=== PATIENT | male | born 1955 | race Caucasian/White ===

== ENCOUNTER 2017-05-27 13:20 | Inpatient (IN) | payer SELFPAY ==
[~2017-05-27] VITALS: Ht 177.8 cm; Wt 61.5 kg
[2017-05-27] VITALS (8 sets, daily range): BP systolic 98–142; BP diastolic 63–83; PULSE 74–158; RESP 22–28; TEMP 97.8–99.2; O2SAT 85–97
[2017-05-27 13:43] LABS: MEAN CORPUSCULAR HGB CONC 29.7 % (32.0-36.0)
--- NOTE | 2017-05-27 13:43 | PD ---
HPI Chief Complaint: Respiratory Distress Time Seen by Provider: 13:43 Travel History International Travel<30 days: No Contact w/Intl Traveler<30days: No Traveled to known affect area: No History of Present Illness HPI 61-year-old male presents to the emergency department for evaluation of worsening shortness of breath. Patient's at bedside states he quit smoking cigarettes in December. He has had shortness of breath since then, but this morning was much more worse than normal. She also reports chest congestion and cough. The patient states he has been coughing up blood, worse at night. The patient states this has been ongoing for several months. He denies any blood in his stool. Patient states at bedside does state he looks more pale than normal. He denies any fevers or chills. No abdominal pain. No nausea, vomiting, diarrhea. He denies any chest pain. His at bedside states that he has not seen a physician in over 5 years. He is not currently on any prescribed medications. Patient reports tobacco history of over 40 years. [facility] Past Medical History Ulcer: Yes Social History Alcohol Use: No Tobacco Use: No Substance Use: No Allergies-Medications (Allergen,Severity, Reaction): Coded Allergies: Onion (Verified Allergy, Severe, abdominal pain, diarreas , 05/27/17) Reported Meds & Prescriptions Reported Meds & Active Scripts Active No Active Prescriptions or Reported Medications Review of Systems Except as stated in HPI: all other systems reviewed are Neg Physical Exam Narrative GENERAL: Well-nourished, well-developed male patient. Afebrile. Patient appears pale on exam SKIN: Focused skin assessment warm/dry. HEAD: Normocephalic. Atraumatic EYES: No scleral icterus. No injection or drainage. NECK: Supple, trachea midline. No JVD or lymphadenopathy. CARDIOVASCULAR: Regular rhythm without murmurs, gallops, or rubs. During physical, patient heart rate will go up to 140s to 150 and then back down to 80- 90's. RESPIRATORY: Breath sounds diminished to right lung. Accessory muscle use noted. GASTROINTESTINAL: Abdomen soft, non-tender, nondistended. MUSCULOSKELETAL: No cyanosis, or edema. BACK: Nontender without obvious deformity. No CVA tenderness. Data Data Last Documented VS Vital Signs Date Time Temp Pulse Resp B/P Pulse Ox O2 Delivery O2 Flow Rate FiO2 05/27/17 16:21 98.9 74 22 98/63 96 Nasal Cannula 3 Orders Complete Blood Count With Diff (05/27/17 13:41) Comprehensive Metabolic Panel (05/27/17 13:41) B-Type Natriuretic Peptide (05/27/17 13:41) Act Partial Throm Time (Ptt) (05/27/17 13:41) Prothrombin Time / Inr (Pt) (05/27/17 13:41) Magnesium (Mg) (05/27/17 13:41) Ckmb (Isoenzyme) Profile (05/27/17 13:41) Troponin I (05/27/17 13:41) Blood Culture (05/27/17 13:41) Iv Access Insert/Monitor (05/27/17 13:41) Electrocardiogram (05/27/17 13:41) Ecg Monitoring (05/27/17 13:41) Oximetry (05/27/17 13:41) Oxygen Administration (05/27/17 13:41) Chest, Single Ap (05/27/17 13:41) Sodium Chloride 0.9% Flush (Ns Flush) (05/27/17 13:45) Albuterol-Ipratropium Neb (Duoneb Neb) (05/27/17 13:45) Type And Screen (05/27/17 13:41) Lactic Acid Sepsis Protocol (05/27/17 13:41) Diltiazem Inj (Cardizem Inj) (05/27/17 14:00) Ct Pulmonary Angiogram (05/27/17 ) Sodium Chlor 0.9% 1000 Ml Inj (Ns 1000 M (05/27/17 14:30) Vancomycin Inj (Vancomycin Inj) (05/27/17 14:30) Piperacil-Tazo 4.5 Gm Premix (Zosyn 4.5 (05/27/17 14:30) CKMB (05/27/17 13:45) CKMB% (05/27/17 13:45) Sodium Chlor 0.9% 1000 Ml Inj (Ns 1000 M (05/27/17 15:15) Aspirin Chew (Aspirin Chew) (05/27/17 15:15) Code Status (05/27/17 15:12) Lactic Acid (05/27/17 16:04) Iohexol 350 Inj (Omnipaque 350 Inj) (05/27/17 16:06) Troponin I (05/27/17 16:55) Admit Order (Ed Use Only) (05/27/17 17:01) Labs Laboratory Tests Test 05/27/17 05/27/17 13:45 16:10 White Blood Count 38.3 TH/MM3 Red Blood Count 4.38 MIL/MM3 Hemoglobin 10.1 GM/DL Hematocrit 33.8 % Mean Corpuscular Volume 77.2 FL Mean Corpuscular Hemoglobin 23.0 PG Mean Corpuscular Hemoglobin 29.7 % Concent Red Cell Distribution Width 18.9 % Platelet Count 544 TH/MM3 Mean Platelet Volume 6.6 FL Neutrophils (%) (Auto) 94.4 % Lymphocytes (%) (Auto) 1.8 % Monocytes (%) (Auto) 3.7 % Eosinophils (%) (Auto) 0.0 % Basophils (%) (Auto) 0.1 % Neutrophils # (Auto) 36.1 TH/MM3 Lymphocytes # (Auto) 0.7 TH/MM3 Monocytes # (Auto) 1.4 TH/MM3 Eosinophils # (Auto) 0.0 TH/MM3 Basophils # (Auto) 0.0 TH/MM3 CBC Comment AUTO DIFF Differential Total Cells 100 Counted Neutrophils % (Manual) 66 % Band Neutrophils % 31 % Monocytes % 3 % Neutrophils # (Manual) 37.2 TH/MM3 Differential Comment FINAL DIFF MANUAL Toxic Granulation 1+ Toxic Vacuolation PRESENT Dohle Bodies PRESENT Platelet Estimate HIGH Platelet Morphology Comment NORMAL Prothrombin Time 13.7 SEC Prothromb Time International 1.2 RATIO Ratio Activated Partial 30.4 SEC Thromboplast Time Sodium Level 131 MEQ/L Potassium Level 3.7 MEQ/L Chloride Level 90 MEQ/L Carbon Dioxide Level 28.3 MEQ/L Anion Gap 13 MEQ/L Blood Urea Nitrogen 14 MG/DL Creatinine 1.19 MG/DL Estimat Glomerular Filtration 62 ML/MIN Rate Random Glucose 159 MG/DL Lactic Acid Level 7.2 mmol/L 6.7 mmol/L Calcium Level 9.4 MG/DL Magnesium Level 2.2 MG/DL Total Bilirubin 0.6 MG/DL Aspartate Amino Transf 61 U/L (AST/SGOT) Alanine Aminotransferase 43 U/L (ALT/SGPT) Alkaline Phosphatase 239 U/L Total Creatine Kinase 141 U/L Creatine Kinase MB 13.6 NG/ML Troponin I 4.75 NG/ML B-Type Natriuretic Peptide 344 PG/ML Total Protein 7.7 GM/DL Albumin 2.1 GM/DL Blood Type O POSITIVE Antibody Screen NEGATIVE Blood Bank Comment MDM Medical Decision Making Medical Screen Exam Complete: Yes Emergency Medical Condition: Yes Medical Record Reviewed: Yes Interpretation(s) Last Impressions Chest X-Ray 05/27/17 1341 Signed Impressions: Service Date/Time: Monday, May 27, 2017 13:52 - CONCLUSION: 1. Almost complete opacification right hemithorax. Central obstructing mass cannot be excluded. Contrasted CT chest. 2. Suspect a large right pleural effusion as well. Sean Augustine MD CT PA - CONCLUSION: 1. No evidence for pulmonary embolus. 2. Diffuse abnormal appearance of the right hemithorax with no normal lung tissue seen. There are air bronchograms in the right upper lung with large cavitary process in the right midlung and upper lung. Multiple areas of low attenuation throughout the right lower hemithorax. This may represent a combination of mass and empyema/lung abscess. Does patient have a surgical history on the right? There is severe tapering of the right main pulmonary artery. 3. Prominent adenopathy in the right paratracheal and superior mediastinum as well as supradiaphragmatic region. 4. Bronchoscopy recommended. Differential Diagnosis Pneumonia versus anemia versus GI bleed versus ACS versus A. fib with RVR versus PE versus sepsis Narrative Course 61-year-old male presents to the emergency department for worsening shortness of breath that started this morning. EKG shows atrial fibrillation, heart rate 139. Immediately after EKG, heart rate came back down to the 80s. CBC, CMP, BNP, PTT, PTT/INR, magnesium, CK, troponin, lactic acid, blood cultures 2, type and screen are ordered and pending. Chest x-ray is ordered and pending. Patient is given DuoNeb 2. Patient is sustaining in atrial fibrillation more frequently. Patient is given Cardizem bolus 0.25 mg/kg. CBC shows leukocytosis of 38.3, hemoglobin 10.1, hematocrit 33.8, neutrophilia 94.4. CMP shows hyponatremia 131, glucose 159, alkaline phosphatase 239. BNP is 344. Magnesium is 2.2. CK is 141. Troponin is 4.75. Lactic acid is 7.2. PT is 13.7, and INR 1.2, PTT 30.4. Chest x-ray shows almost complete opacification right hemithorax; Central obstructing mass cannot be excluded. Contrasted CT chest; Suspect a large right pleural effusion as well. CT pulmonary angiogram is ordered and shows no evidence for pulmonary embolus; diffuse abnormal appearance of the right hemithorax with no normal lung tissue seen. There are air bronchograms in the right upper lung with large cavitary process in the right midlung and upper lung. Multiple areas of low attenuation throughout the right lower hemithorax. This may represent a combination of mass and empyema/lung abscess. Does patient have a surgical history on the right? There is severe tapering of the right main pulmonary artery; prominent adenopathy in the right paratracheal and superior mediastinum as well as supradiaphragmatic region; bronchoscopy recommended. Patient is started on vancomycin 1 gm IV and Zosyn 4.5 gm IV. Normal saline 1 L IV bolus x2 is given. Dr. Pierre, veneer sawyer, accepted admission. Patient is placed on bipap. He is diaphoretic and using accessory muscles. Patient will be placed on bipap and ABG will be obtained. Dr. Pierre would like patient on TB precautions. Patient will be moved to a negative pressure room. Sepsis Criteria SIRS Criteria (2 or more): Heart rate over 90, WBC > 07570, < 4000 or > 10% bands Sepsis Criteria (SIRS+source): Infect source susp/known Severe Sepsis (+one): Lactate >2 Septic Shock Criteria: Lactic acid >=4 Diagnosis Primary Impression: Acute respiratory failure Qualified Code: J96.00 - Acute respiratory failure, unspecified whether with hypoxia or hypercapnia Additional Impressions: Probable lung abscess Septic shock Severe leukocytosis Lactic acidemia NSTEMI (non-ST elevated myocardial infarction) Cavitating right sided lung lesion Admitting Information Admitting Physician Requests: Admit Scripts No Active Prescriptions or Reported Meds Jenae Lr May 27, 2017 13:43
[2017-05-27] MEDS: RESP: ALBUTEROL 2.5 MG/IPRATROPIUM 0.5 MG NEB (SCH) INH (13:46)
[2017-05-27] MEDS ORDERED: DILTIAZEM HCL 25 MG/5 ML VIAL IV PUSH ONE (14:00)
[2017-05-27] MEDS: SODIUM CHLORIDE 0.9% FLUSH 10 ML FLUSH IVF PRN ×2 (14:06→17:44)
[2017-05-27 14:08] LABS: AUTOMATED NEUTROPHIL # 36.1 TH/MM3 (1.8-7.7); BASOPHIL % 0.1 % (0.0-2.0); HEMATOCRIT 33.8 % (39.0-51.0); LYMPH % 1.8 % (9.0-44.0); LYMPHOCYTE # 0.7 TH/MM3 (1.0-4.8); MEAN CELL VOLUME 77.2 FL (80.0-100.0); MONO % 3.7 % (0.0-8.0); NEUT % 94.4 % (16.0-70.0); PLATELET COUNT 544 TH/MM3 (150-450); RED BLOOD COUNT 4.38 MIL/MM3 (4.50-5.90); RED CELL DISTRIBUTION WIDTH 18.9 % (11.6-17.2); WHITE BLOOD COUNT 38.3 TH/MM3 (4.0-11.0)
[2017-05-27 14:09] LABS: HEMO FLAGS AUTO DIFF
[2017-05-27 14:16] LABS: APTT (PATIENT) 30.4 SEC (24.3-30.1); INTERNATIONAL NORMALIZED RATIO 1.2 RATIO; PROTHROMBIN TIME - PATIENT 13.7 SEC (9.8-11.6)
--- NOTE | 2017-05-27 14:24 | PD ---
Physical Exam Date Seen by Provider: May 27, 2017 Time Seen by Provider: 14:00 Narrative This patient is being seen along with Jenae Lr for cough and shortness of breath. Data Data Last Documented VS Vital Signs Date Time Temp Pulse Resp B/P Pulse Ox O2 Delivery O2 Flow Rate FiO2 05/27/17 16:21 98.9 74 22 98/63 96 Nasal Cannula 3 Orders Complete Blood Count With Diff (05/27/17 13:41) Comprehensive Metabolic Panel (05/27/17 13:41) B-Type Natriuretic Peptide (05/27/17 13:41) Act Partial Throm Time (Ptt) (05/27/17 13:41) Prothrombin Time / Inr (Pt) (05/27/17 13:41) Magnesium (Mg) (05/27/17 13:41) Ckmb (Isoenzyme) Profile (05/27/17 13:41) Troponin I (05/27/17 13:41) Blood Culture (05/27/17 13:41) Iv Access Insert/Monitor (05/27/17 13:41) Electrocardiogram (05/27/17 13:41) Ecg Monitoring (05/27/17 13:41) Oximetry (05/27/17 13:41) Oxygen Administration (05/27/17 13:41) Chest, Single Ap (05/27/17 13:41) Sodium Chloride 0.9% Flush (Ns Flush) (05/27/17 13:45) Albuterol-Ipratropium Neb (Duoneb Neb) (05/27/17 13:45) Type And Screen (05/27/17 13:41) Lactic Acid Sepsis Protocol (05/27/17 13:41) Diltiazem Inj (Cardizem Inj) (05/27/17 14:00) Ct Pulmonary Angiogram (05/27/17 ) Sodium Chlor 0.9% 1000 Ml Inj (Ns 1000 M (05/27/17 14:30) Vancomycin Inj (Vancomycin Inj) (05/27/17 14:30) Piperacil-Tazo 4.5 Gm Premix (Zosyn 4.5 (05/27/17 14:30) CKMB (05/27/17 13:45) CKMB% (05/27/17 13:45) Sodium Chlor 0.9% 1000 Ml Inj (Ns 1000 M (05/27/17 15:15) Aspirin Chew (Aspirin Chew) (05/27/17 15:15) Code Status (05/27/17 15:12) Lactic Acid (05/27/17 16:04) Iohexol 350 Inj (Omnipaque 350 Inj) (05/27/17 16:06) Troponin I (05/27/17 16:55) Admit Order (Ed Use Only) (05/27/17 17:01) Labs Laboratory Tests Test 05/27/17 05/27/17 13:45 16:10 White Blood Count 38.3 TH/MM3 Red Blood Count 4.38 MIL/MM3 Hemoglobin 10.1 GM/DL Hematocrit 33.8 % Mean Corpuscular Volume 77.2 FL Mean Corpuscular Hemoglobin 23.0 PG Mean Corpuscular Hemoglobin 29.7 % Concent Red Cell Distribution Width 18.9 % Platelet Count 544 TH/MM3 Mean Platelet Volume 6.6 FL Neutrophils (%) (Auto) 94.4 % Lymphocytes (%) (Auto) 1.8 % Monocytes (%) (Auto) 3.7 % Eosinophils (%) (Auto) 0.0 % Basophils (%) (Auto) 0.1 % Neutrophils # (Auto) 36.1 TH/MM3 Lymphocytes # (Auto) 0.7 TH/MM3 Monocytes # (Auto) 1.4 TH/MM3 Eosinophils # (Auto) 0.0 TH/MM3 Basophils # (Auto) 0.0 TH/MM3 CBC Comment AUTO DIFF Differential Total Cells 100 Counted Neutrophils % (Manual) 66 % Band Neutrophils % 31 % Monocytes % 3 % Neutrophils # (Manual) 37.2 TH/MM3 Differential Comment FINAL DIFF MANUAL Toxic Granulation 1+ Toxic Vacuolation PRESENT Dohle Bodies PRESENT Platelet Estimate HIGH Platelet Morphology Comment NORMAL Prothrombin Time 13.7 SEC Prothromb Time International 1.2 RATIO Ratio Activated Partial 30.4 SEC Thromboplast Time Sodium Level 131 MEQ/L Potassium Level 3.7 MEQ/L Chloride Level 90 MEQ/L Carbon Dioxide Level 28.3 MEQ/L Anion Gap 13 MEQ/L Blood Urea Nitrogen 14 MG/DL Creatinine 1.19 MG/DL Estimat Glomerular Filtration 62 ML/MIN Rate Random Glucose 159 MG/DL Lactic Acid Level 7.2 mmol/L 6.7 mmol/L Calcium Level 9.4 MG/DL Magnesium Level 2.2 MG/DL Total Bilirubin 0.6 MG/DL Aspartate Amino Transf 61 U/L (AST/SGOT) Alanine Aminotransferase 43 U/L (ALT/SGPT) Alkaline Phosphatase 239 U/L Total Creatine Kinase 141 U/L Creatine Kinase MB 13.6 NG/ML Troponin I 4.75 NG/ML B-Type Natriuretic Peptide 344 PG/ML Total Protein 7.7 GM/DL Albumin 2.1 GM/DL Blood Type O POSITIVE Antibody Screen NEGATIVE Blood Bank Comment MDM Supervised Visit with JATINDER: Yes Narrative Course I, Dr. Moreno, have reviewed the advance practice practitioner's documentation and am in agreement, met with the patient face to face, made the diagnosis, and the medical decision making was done by me. *My assessment and Findings: Patient is pale and diaphoretic. He alternates between a sinus rhythm and atrial fibrillation with a rapid ventricular response. His lung sounds on the right are markedly diminished. The patient's told me that the patient requested a DNR status in route to the hospital today. I have explained to the patient and to the that there are several different levels of DNR including DO NOT INTUBATE, do not perform compressions, do not shock and do not do anything. They are currently thinking about which status he would prefer. The patient and the state that he would not want anything done if he suffered cardiac arrest. He wants to be a DNR. Critical Care Narrative Aggregate critical care time was 45 minutes. Time to perform other separately billable procedures was not included in the critical care time. My time did not include minutes spent treating any other patients simultaneously or on activities that did not directly contribute to the patient's treatment. The services I provided to this patient were to treat and/or prevent clinically significant deterioration due to tachycardia, diaphoresis, respiratory distress I provided critical care services requiring my management, as noted below: Chart data review, documentation time, medication orders and management, vital sign assessments/reviewing monitor data, ordering and reviewing lab tests, ordering and interpreting/reviewing x-rays and diagnostic studies, care of the patient and discussion of the patient with the admitting physicians Scripts No Active Prescriptions or Reported Meds Parris Moreno MD May 27, 2017 14:24
[2017-05-27] MEDS ORDERED: VANCOMYCIN INJ 1,000 MG in SODIUM CHLOR 0.9% 250 ML INJ 250 ML IV ONE (14:30)
[2017-05-27] MEDS ORDERED: SODIUM CHLOR 0.9% 1000 ML INJ 1,000 ML IV ONE ×2 (14:30→15:15)
[2017-05-27] MEDS ORDERED: PIPERACIL-TAZO 4.5 GM PREMIX 100 ML IV ONE (14:30)
[2017-05-27 14:34] LABS: BANDS 31 % (0-6); NEUTROPHIL # MANUAL DIFF 37.2 TH/MM3 (1.8-7.7); PLATELET ESTIMATE SMEAR HIGH (NORMAL); PLATELET MORPHOLOGY NORMAL (NORMAL); POLYS (SEG NEUTROPHILS) 66 % (16-70); SCAN/DIFF FINAL DIFF MANUAL; WBC DIFF SAMPLE 100
[2017-05-27 14:35] LABS: DOHLE BODIES PRESENT (NONE SEEN); TOXIC GRANULATION 1+ (NORMAL); TOXIC VACUOLATION PRESENT (NONE SEEN)
[2017-05-27 14:36] LABS: ALT (GPT) 43 U/L (12-78); ANION GAP 13 MEQ/L (5-15); AST (GOT) 61 U/L (15-37); BICARBONATE 28.3 MEQ/L (21.0-32.0); BLOOD UREA NITROGEN 14 MG/DL (7-18); CHLORIDE 90 MEQ/L (98-107); GLOMERULAR FILTRATION RATE 62 ML/MIN (>89); MAGNESIUM 2.2 MG/DL (1.5-2.5); POTASSIUM 3.7 MEQ/L (3.5-5.1); SODIUM (NA) 131 MEQ/L (136-145)
--- NOTE | 2017-05-27 14:37 | RADRPT ---
EXAM DATE/TIME: 05/27/2017 13:52 [facility] COMPARISON: No previous studies available for comparison. INDICATIONS : Short of Breath MEDICAL HISTORY : None. SURGICAL HISTORY : None. ENCOUNTER: Initial ACUITY: 1 day PAIN SCORE: 0/10 LOCATION: Bilateral chest FINDINGS: A single view of the chest demonstrates large right pleural effusion. Almost complete opacification r ight hemithorax. Only small portion of the right upper lobe aerated. Central obstructing mass cannot be excluded. Left lung clear. Osseous structures are intact. CONCLUSION: 1. Almost complete opacification right hemithorax. Central obstructing mass cannot be excluded. Contr asted CT chest. 2. Suspect a large right pleural effusion as well. Sean Augustine MD on May 27, 2017 at 14:35 Board Certified Radiologist. This report was verified electronically.
[2017-05-27 14:39] LABS: ALKALINE PHOSPHATASE 239 U/L (45-117); CREATINE KINASE 141 U/L (39-308); TOTAL BILIRUBIN ADULT 0.6 MG/DL (0.2-1.0)
[2017-05-27 15:14] LABS: CKMB 13.6 NG/ML (0.5-3.6)
[2017-05-27] MEDS ORDERED: ASPIRIN 81 MG CHEW TAB CHEW ONE (15:15)
[2017-05-27 16:05] LABS: LACTIC ACID GHOST NOT REPORTABLE
[2017-05-27] MEDS ORDERED: IOHEXOL 350 MG/ML 10 ML VIAL (for RAD DIAG) IV ONE (16:06)
--- NOTE | 2017-05-27 16:20 | RADRPT ---
EXAM DATE/TIME: 05/27/2017 15:46 [facility] COMPARISON: No previous studies available for comparison. INDICATIONS : Worsening shortness of breath for one week. IV CONTRAST: 69 cc Omnipaque 350 (iohexol) IV RADIATION DOSE: 23.42 CTDIvol (mGy) MEDICAL HISTORY : None SURGICAL HISTORY : None. ENCOUNTER: Initial ACUITY: 1 day PAIN SCALE: 0/10 LOCATION: Bilateral chest TECHNIQUE: Volumetric scanning of the chest was performed using a pulmonary embolism protocol MIP images were re constructed. Using automated exposure control and adjustment of the mA and/or kV according to patien t size, radiation dose was kept as low as reasonably achievable to obtain optimal diagnostic quality images. DICOM format image data is available electronically for review and comparison. FINDINGS: PULMONARY ARTERIES: No filling defects are seen in the pulmonary arteries through the segmental level. LUNGS: Diffuse abnormal appearance of the right lung with multiple air bronchograms and cavities occupying t he right upper lung. Multiple areas of low-density are seen throughout the right lower lung. This may represent a combination of mass and lung abscess/empyema. No normal appearing lung tissue present. T here is narrowing of the right pulmonary artery. PLEURAE: There is no pleural thickening or pleural effusion. MEDIASTINUM: There is good visualization of the great vessels of the middle mediastinum. There are some prominent right paratracheal lymph nodes and super diaphragmatic lymph nodes. MUSCULOSKELETAL: Within normal limits for patient age. MISCELLANEOUS: The visualized upper abdominal organs demonstrate prominent super diaphragmatic lymph node measuring 1.4 x 1.8 cm.. CONCLUSION: 1. No evidence for pulmonary embolus. 2. Diffuse abnormal appearance of the right hemithorax with no normal lung tissue seen. There are air bronchograms in the right upper lung with large cavitary process in the right midlung and upper lung . Multiple areas of low attenuation throughout the right lower hemithorax. This may represent a combi [place] of mass and empyema/lung abscess. Does patient have a surgical history on the right? There is severe tapering of the right main pulmonary artery. 3. Prominent adenopathy in the right paratracheal and superior mediastinum as well as supradiaphragma tic region. 4. Bronchoscopy recommended. Sean Augustine MD on May 27, 2017 at 16:09 Board Certified Radiologist. This report was verified electronically.
--- NOTE | 2017-05-27 17:11 | HHI.HP ---
HPI Service Critical Care Medicine Primary Care Physician No Primary Care Physician Admission Diagnosis pnemonia, sepsis, elevated troponin, A-fib with RVR Diagnosis: (1) Acute hypoxemic respiratory failure Diagnosis: Principal (2) Septic shock Diagnosis: Principal (3) NSTEMI (non-ST elevated myocardial infarction) Diagnosis: Principal (4) Probable lung abscess Diagnosis: Principal (5) Cavitating right sided lung lesion Diagnosis: Principal (6) Severe leukocytosis Diagnosis: Principal (7) Lactic acidemia Diagnosis: Principal (8) Atrial fibrillation with RVR Diagnosis: Principal (9) History of gastric ulcer Diagnosis: Secondary Chief Complaint: Severe shortness of breath [employer] Travel History International Travel<30 Days: No Contact w/Intl Traveler <30 Da: No Traveled to Known Affected Are: No Sepsis Criteria SIRS Criteria (2 or more): Heart rate over 90, RR > 20 or PaCO2 < 32, WBC > 81240, < 4000 or > 10% bands Severe Sepsis (+one): Lactate >2 Septic Shock Criteria: Lactic acid >=4 Criteria Outcome: Meets septic shock criteria History of Present Illness Patient is a 61-year-old male with past medical history significant for [id number] history of smoking, previous history of alcohol dependence, weight loss of approximately 100 pound since December of this year, hemoptysis who presented to the emergency department with progressive shortness of breath. He arrived quite tachypneic and diaphoretic to the ED. Patient was placed on nasal cannula oxygen, a chest x-ray showed complete whiteout of the right lung field. Patient was sent for emergent CT pulmonary angiogram which showed no pulmonary embolism but extensive and complete consolidation of the right lung with air bronchograms in the right upper lung with large cavitary process. Right lower lung field had cavitated lesions indicating probable cavitated lung cancer versus empyema/lung abscess, also severe tapering of the right main pulmonary artery, and prominent adenopathy in the right paratracheal and superior mediastinum as well as supradiaphragmatic region. He should also was initially in atrial fibrillation with RVR, for which he received Cardizem bolus and converted to sinus rhythm. Multiple abnormal lab data CBC shows leukocytosis of 38.3 with 31% bands, hemoglobin 10.1. CMP shows hyponatremia 131. His Troponin is was 4.75. Lactic acid was highly elevated at 7.2. Patient was vancomycin 1 gm IV and Zosyn 4.5 gm IV. Normal saline 1 L IV bolus x2 is given. Patient requested to be a DNR I evaluated the patient in the emergency department. His respiratory status has deteriorated his more hypoxic and very tachypneic and had been placed on BiPAP. I discussed with him extensively about the CODE STATUS and the reason for choosing DNR. He is very adamant that he does not run ventilatory support or cardiac resuscitation. His sister agrees that they have decided this prior to hospitalization. Patient appears to be worried that he has lung cancer with a weight loss and hemoptysis. Apparently his father of gastric cancer, one sister had breast cancer and another sister had colon cancer. Again patient is extremely tachypneic in impending respiratory failure but refuses ventilator and now refusing BiPAP. I have placed him for Ativan and morphine for anxiety. I have placed him on scheduled and when necessary breathing treatments. Will continue vancomycin and Zosyn and add Levaquin. Also started him on Solu-Medrol 125 mg 1 and 60 every 6 Review of Systems ROS Limitations: Clinical Condition (limited ROS due to severe respiratory distress) Past Family Social History Allergies: Coded Allergies: Onion (Verified Allergy, Severe, abdominal pain, diarreas , 05/27/17) Past Medical History Past history significant for only gastric ulcer Past Surgical History No surgeries Reported Medications Does not take any medication Active Ordered Medications Reviewed Family History Apparently his father of gastric cancer, one sister had breast cancer and another sister had colon cancer Social History [id number] history of smoking until he quit in December of this year History of alcohol dependence and quit 5 years ago Physical Exam Vital Signs Vital Signs Date Time Temp Pulse Resp B/P Pulse Ox O2 Delivery O2 Flow Rate FiO2 05/27/17 16:21 98.9 74 22 98/63 96 Nasal Cannula 3 05/27/17 14:32 99.2 91 24 142/78 96 Nasal Cannula 3 05/27/17 13:45 99 Nasal Cannula 3 05/27/17 13:42 24 97 Nasal Cannula 3 05/27/17 13:33 158 24 98/67 97 Physical Exam GENERAL: Extremely tachypneic critically ill patient who is the diaphoretic SKIN: Dry pale and diaphoretic HEAD: Normocephalic. Atraumatic EYES: No scleral icterus. No injection or drainage. NECK: Supple, trachea midline. No JVD or lymphadenopathy. CARDIOVASCULAR: Tachycardic rhythm without murmurs, gallops, or rubs. Intermittently in atrial fibrillation RESPIRATORY: Breath sounds diminished to right lung, coarse and fine scattered crackles. Accessory muscle use noted. Very tachypneic GASTROINTESTINAL: Abdomen soft, non-tender, nondistended. MUSCULOSKELETAL: No cyanosis, or edema. BACK: Nontender without obvious deformity. No CVA tenderness. NEURO: Alert oriented 3. Severe distress but follows commands Laboratory Laboratory Tests Test 05/27/17 05/27/17 13:45 16:10 White Blood Count 38.3 Red Blood Count 4.38 Hemoglobin 10.1 Hematocrit 33.8 Mean Corpuscular Volume 77.2 Mean Corpuscular Hemoglobin 23.0 Mean Corpuscular Hemoglobin 29.7 Concent Red Cell Distribution Width 18.9 Platelet Count 544 Mean Platelet Volume 6.6 Neutrophils (%) (Auto) 94.4 Lymphocytes (%) (Auto) 1.8 Monocytes (%) (Auto) 3.7 Eosinophils (%) (Auto) 0.0 Basophils (%) (Auto) 0.1 Neutrophils # (Auto) 36.1 Lymphocytes # (Auto) 0.7 Monocytes # (Auto) 1.4 Eosinophils # (Auto) 0.0 Basophils # (Auto) 0.0 CBC Comment AUTO DIFF Differential Total Cells 100 Counted Neutrophils % (Manual) 66 Band Neutrophils % 31 Monocytes % 3 Neutrophils # (Manual) 37.2 Differential Comment FINAL DIFF MANUAL Toxic Granulation 1+ Toxic Vacuolation PRESENT Dohle Bodies PRESENT Platelet Estimate HIGH Platelet Morphology Comment NORMAL Prothrombin Time 13.7 Prothromb Time International 1.2 Ratio Activated Partial 30.4 Thromboplast Time Sodium Level 131 Potassium Level 3.7 Chloride Level 90 Carbon Dioxide Level 28.3 Anion Gap 13 Blood Urea Nitrogen 14 Creatinine 1.19 Estimat Glomerular Filtration 62 Rate Random Glucose 159 Lactic Acid Level 7.2 6.7 Calcium Level 9.4 Magnesium Level 2.2 Total Bilirubin 0.6 Aspartate Amino Transf 61 (AST/SGOT) Alanine Aminotransferase 43 (ALT/SGPT) Alkaline Phosphatase 239 Total Creatine Kinase 141 Creatine Kinase MB 13.6 Troponin I 4.75 B-Type Natriuretic Peptide 344 Total Protein 7.7 Albumin 2.1 Blood Type O POSITIVE Antibody Screen NEGATIVE Blood Bank Comment Date/Time Procedure Status Source Growth 05/27/17 13:50 Aerobic Blood Culture Received Blood Peripheral Pending 05/27/17 13:50 Anaerobic Blood Culture Received Blood Peripheral Pending Result Diagram: 05/27/17 1345 05/27/17 1345 Imaging Chest x-ray and CT scan personally reviewed Septic Shock Reassessment Heart: Irregular Lungs: Course Skin: Cold Peripheral Pulses: Weak Right Radial Weak Left Radial Capillary Refill: Sluggish, <2 seconds Assessment and Plan Assessment and Plan NEURO: - Use Ativan and fentanyl when necessary for anxiety and pain - If clinically not improving may need transition to comfort measures RESP: Acute hypoxemic respiratory failure Extensive consolidation/mass involving right lung with cavitation (D/D cavitated treated lung cancer vs Lung abscess vs tuberculosis) COPD exacerbation - Initiate TB isolation. Patient refuses endotracheal intubation - DuoNeb every 6 hours scheduled and when necessary - IV Solu Medrol 125 mg 1 and 60 every 6 hours - Vancomycin and Zosyn will be continued, add Levaquin - Sputum culture, AFB stain and culture - Pulmonology and infectious diseases consult - CT findings along with history of hemoptysis and approximately 100 pound weight loss very concerning for lung cancer CV: NSTEMI Atrial fibrillation with RVR Lactic acidosis - Normal saline IV fluids 2L and NS at 84 ml per hour - Hold of cardiology consult and 2-D echo due to poor prognosis, repeat troponin - Patient refused aspirin. With a history of gastric ulcer I will not heparinize - Cardizem infusion for atrial fibrillation with RVR GI: - Nothing by mouth, IV Protonix : - Monitor renal function closely. Place Singh catheter if patient agreeable ID: Septic shock Probable cavitating pneumonia/lung abscess - IV vancomycin, Zosyn and Levaquin - Check sputum culture blood culture and sputum for AFB HEME: - Monitor CBC, CMP, coags - High likelihood of cavitating lung cancer. - Pursue bronchoscopy if he stabilizes clinically ENDO: - Electrolyte replacement per protocol PROPH: - Bilateral lower extremity SCDs. Lovenox/Protonix LINES: - Utilize peripheral IVs, central line if needed CC time 55 min Patient is in respiratory extremis, but refuses BiPAP or endotracheal intubation. He is aware that he may of present illness Code Status Full Discussed Condition With Patient and sister Ruben Pierre MD May 27, 2017 17:11
[2017-05-27] MEDS ORDERED: Vancomycin Consult Pharmacy 1 EA OTHER SCH (17:15)
[2017-05-27] MEDS ORDERED: MISCELLANEOUS NURSING INFORMATION XX SCH (17:15)
[2017-05-27] MEDS ORDERED: RESP: ALBUTEROL 2.5 MG/IPRATROPIUM 0.5 MG NEB (PRN) INH (17:15)
[2017-05-27] MEDS ORDERED: CHLORHEXIDINE GLUCONATE 2 % 1 PACK (2 CLOTHS) TOP PRN (17:15)
[2017-05-27] MEDS ORDERED: SODIUM CHLORIDE 0.9% FLUSH 10 ML FLUSH IV FLUSH PRN (17:15)
[2017-05-27] MEDS ORDERED: PANTOPRAZOLE SODIUM 40 MG VIAL IV SCH (17:15)
--- NOTE | 2017-05-27 17:30 | EKG ---
Date Performed: 05/27/2017 Time Performed: 13:42:21 PTAGE: 61 years EKG: ATRIAL FIBRILLATION WITH RAPID VENTRICULAR RESPONSE MARKED LEFT AXIS DEVIATION POSSIBLE ANT ERIOR MYOCARDIAL INFARCTION BASELINE ARTIFACT ABNORMAL ECG NO PREVIOUS TRACING DOCTOR: Jose Antonio Sethi Interpretating Date/Time 05/29/2017 07:52:50
[2017-05-27] MEDS ORDERED: LORazepam 2 MG/ML VIAL IV PUSH PRN (17:45)
[2017-05-27] MEDS ORDERED: LEVOFLOXACIN 750 MG PREMIX INJ 150 ML IV SCH (18:00)
[2017-05-27] MEDS ORDERED: PIPERACIL-TAZO 4.5 GM PREMIX 100 ML IV SCH ×2 (18:00→20:00)
[2017-05-27] MEDS ORDERED: ENOXAPARIN SODIUM 40 MG/0.4 ML SYRINGE SQ SCH (18:00)
[2017-05-27] MEDS ORDERED: methylPREDNISolone SOD SUCC 125 MG/2 ML VIAL IV PUSH SCH (18:00)
[2017-05-27] MEDS ORDERED: methylPREDNISolone SOD SUCC 125 MG/2 ML VIAL IV PUSH ONE (18:00)
[2017-05-27] MEDS ORDERED: DILTIAZEM INJ 125 MG in SODIUM CHLORIDE 0.9% INJ 100 ML IV SCH (18:00)
[2017-05-27] MEDS: SODIUM CHLOR 0.9% 1000 ML INJ 1,000 ML IV SCH (18:36)
[2017-05-27] MEDS ORDERED: VANCOMYCIN 1,000 MG/NS 250 ML IV ONE ×2 (19:30)
[2017-05-27] MEDS ORDERED: RESP: IPRATROPIUM 0.5 MG/2.5 ML NEB NEB PRN (20:00)
[2017-05-27] MEDS ORDERED: CHLORHEXIDINE 0.12% (ORAL KIT) 15 ML CUP MT SCH (20:00)
[2017-05-27] MEDS ORDERED: SODIUM CHLORIDE 0.9% FLUSH 10 ML FLUSH IV FLUSH SCH (21:00)
--- NOTE | 2017-05-27 21:48 | EKG ---
Date Performed: 05/27/2017 Time Performed: 15:15:31 PTAGE: 61 years EKG: Sinus rhythm ANTERIOR MYOCARDIAL INFARCTION INFERIOR MYOCARDIAL INFARCTION ABNORMAL ECG PREVIOUS TRACING : 05/27/2017 13.42 Compared to the previous tracing, previously atrial fibrill ation DOCTOR: Jose Antonio Sethi Interpretating Date/Time 05/27/2017 21:46:33
[2017-05-27] MEDS: RESP: ALBUTEROL 2.5 MG/IPRATROPIUM 0.5 MG NEB (SCH) NEB (22:00)
--- NOTE | 2017-05-27 23:58 | MB ---
cc: VaishnaviSHAREE CERVANTES DATE OF CONSULTATION 05/27/17 REASON FOR CONSULTATION Respiratory distress and cavitary lung lesion. HISTORY OF PRESENT ILLNESS This is a 61-year-old white male who has had a longstanding history of chronic bronchitis and chronic cough and wheezing, was admitted through the emergency room with respiratory distress, pneumonia, sepsis, hypoxia and atrial fibrillation with a rapid ventricular response. The patient has a longstanding history of smoking and does have COPD and also alcohol dependence in the past. He has had a 100-pound weight loss over the past year and was brought to the ER due to dyspnea and orthopnea and diaphoresis. Upon arrival the patient had a chest x-ray which showed extensive right lung infiltrate. A CTA of the chest showed no PE but had extensive consolidation of the right lung with air bronchograms and a large cavitary lesion in the right midlung and upper lung. There was also the tapering of the right main pulmonary artery and adenopathy in the right paratracheal area. He was also started on Cardizem for atrial fibrillation and rapid ventricular response and he is complaining of weakness and dizziness and palpitations. Not running any fever. He was quite dehydrated. PAST MEDICAL HISTORY The past history includes gastric ulcer and history of COPD. FAMILY HISTORY Father had gastric cancer. One sister had breast cancer and one sister with colon cancer. HABITS The patient smoked one-pack per day for 40 years. Alcohol use in the past but not recently. REVIEW OF SYSTEMS The patient has lost weight. He has joint pains and back pain. He has epigastric pain with reflux. No nausea, vomiting. No urinary symptoms. No leg or calf muscle pains. He has some joint pains of his extremities. PHYSICAL EXAMINATION GENERAL: This averagely built elderly white male who is in no acute distress. VITAL SIGNS: Blood pressure 130/60, pulse is 85, respirations 18, temperature 98.5. HEENT: Head normocephalic. Pupils are reactive. Tongue is moist. Throat is injected. Nasal mucosa erythematous. NECK: Supple. No bruits or thyroid enlargement or lymphadenopathy. CHEST: Distant breath sounds with wheezes throughout both lung paez. Prolonged expirations. HEART: The heart sounds are irregular, S1 and S2. No murmur. No S3. ABDOMEN: Soft and benign. No masses. EXTREMITIES: No lesions. No edema. Reflexes are normal. No gross motor deficits. IMPRESSION 1. Acute respiratory failure. 2. NSTEMI. 3. Sepsis with shock. 4. Atrial fibrillation with rapid ventricular response. 5. Gastric ___. PLAN The patient was already on antibiotic coverage which will continue. Also, use nebulized DuoNeb solution four times a day. Placed on Ventimask 40% p.r.n. The patient will be maintained on Cardizem 90 milligrams daily and continue with Proventil 2 puffs q.i.d. p.r.n. Followup visit be arranged in approximately 2 months or earlier if necessary. Thank you for this consultation. Sharee Cummings MD JSVETLANA/JAIME /11:10 PM /11:32 PM
[2017-05-28] VITALS: BP 85/61; PULSE 116; RESP 28; O2SAT 90
[2017-05-28] LABS: MAGNESIUM 2.3 MG/DL (1.5-2.5)
[2017-05-28] MEDS ORDERED: VANCOMYCIN 1,000 MG/NS 250 ML IV ONE ×2
[2017-05-28] MEDS ORDERED: methylPREDNISolone SOD SUCC 125 MG/2 ML VIAL IV PUSH SCH
[2017-05-28] MEDS: SODIUM CHLOR 0.9% 1000 ML INJ 1,000 ML IV SCH (00:33)
[2017-05-28 00:45] VITALS: O2SAT 93
[2017-05-28] MEDS ORDERED: PHENYLEPHRINE 40 MG/D5W 496 ML ADMIX IV SCH ×2 (01:00)
[2017-05-28 02:00] VITALS: PULSE 74
[2017-05-28] MEDS ORDERED: TERBUTALINE INJ 1 MG/ML AMP SQ PRN (03:15)
[2017-05-28 04:00] VITALS: BP 104/58; PULSE 51; RESP 10
[2017-05-28] MEDS ORDERED: CHLORHEXIDINE GLUCONATE 2 % 1 PACK (2 CLOTHS) TOP SCH (04:00)
[2017-05-28] MEDS: RESP: ALBUTEROL 2.5 MG/IPRATROPIUM 0.5 MG NEB (SCH) NEB (04:30)
--- NOTE | 2017-05-28 05:02 | DEATH SUM ---
Summary Demographics Date Pronounced : May 28, 2017 Time Of : 04:15 Preliminary Cause of : Sepsis Ministerio Larose MD May 28, 2017 05:02
--- NOTE | 2017-05-28 05:09 | HHI.CCPN ---
Subjective Remarks/Hospital Course Patient is a 61-year-old male with past medical history significant for [id number] history of smoking, previous history of alcohol dependence, weight loss of approximately 100 pound since December of this year, hemodialysis who presented to the emergency department with progressive shortness of breath. He arrived quite tachypneic and diaphoretic to the ED. Patient was placed on nasal cannula oxygen, a chest x-ray showed complete whiteout of the right lung field. Patient was sent for emergent CT pulmonary angiogram which showed no pulmonary embolism but extensive and complete consolidation of the right lung with air bronchograms in the right upper lung with large cavitary process in the right midlung and upper lung. Right lower lung field had cavitated lesions indicating probable cavitated lung cancer versus empyema/lung abscess. There was also severe tapering of the right main pulmonary artery, and prominent adenopathy in the right paratracheal and superior mediastinum as well as supradiaphragmatic region. He should also was initially in atrial fibrillation with RVR, for which he received Cardizem bolus and converted to sinus rhythm. Multiple abnormal lab data CBC shows leukocytosis of 38.3 with 31% bands, hemoglobin 10.1. CMP shows hyponatremia 131. His Troponin is was 4.75. Lactic acid was highly elevated at 7.2. Patient was vancomycin 1 gm IV and Zosyn 4.5 gm IV. Normal saline 1 L IV bolus x2 is given. Patient requested to be a DNR I evaluated the patient in the emergency department. His respiratory status has deteriorated his more hypoxic and very tachypneic and had been placed on BiPAP. I discussed with him extensively about the CODE STATUS and the reason for choosing DNR. He is very adamant that he does not run ventilatory support or cardiac resuscitation. His sister agrees that they have decided this prior to hospitalization. Patient appears to be worried that he has lung cancer with a weight loss and hemoptysis. Apparently his father of gastric cancer, one sister had breast cancer and another sister had colon cancer. Again patient is extremely tachypneic in impending respiratory failure but refuses ventilator and now refusing BiPAP. I have placed him for Ativan and morphine for anxiety. I have placed him on scheduled and when necessary breathing treatments. Will continue vancomycin and Zosyn and add Levaquin. Also started him on Solu-Medrol 125 mg 1 and 60 every 6 : Continued deterioration overnight. His sister has arrived and, knowing how ill he has become over the last several months, requests that he just be kept comfortable at this point. Objective Vital Signs Date Time Temp Pulse Resp B/P Pulse Ox O2 Delivery O2 Flow Rate FiO2 05/28/17 00:45 93 Nasal Cannula 5.00 05/27/17 23:10 28 05/27/17 20:00 120 05/27/17 20:00 117/79 05/27/17 19:16 98.6 Intake and Output 05/27/17 05/27/17 05/28/17 08:00 16:00 00:00 Output Total 600 ml Balance -600 ml Result Diagram: 05/27/17 1345 05/27/17 1345 Imaging Chest x-ray and CT scan personally reviewed Objective Remarks GENERAL: Extremely tachypneic critically ill patient who is the diaphoretic SKIN: Dry pale and diaphoretic HEAD: Normocephalic. Atraumatic EYES: No scleral icterus. No injection or drainage. NECK: Supple, trachea midline. Mild snoring.. CARDIOVASCULAR: Tachycardic rhythm without murmurs, gallops, or rubs. Intermittently in atrial fibrillation RESPIRATORY: Breath sounds diminished to right lung, coarse and fine scattered crackles. Accessory muscle use noted. Remains tachypneic GASTROINTESTINAL: Abdomen soft, non-tender, nondistended. MUSCULOSKELETAL: No cyanosis, or edema. BACK: Nontender without obvious deformity. No CVA tenderness. NEURO: Lethargic. A/P Assessment and Plan NEURO: - Use Ativan and fentanyl when necessary for anxiety and pain - If clinically not improving may need transition to comfort measures RESP: Acute hypoxemic respiratory failure Extensive consolidation/mass involving right lung with cavitation (D/D cavitated treated lung cancer vs Lung abscess vs tuberculosis COPD exacerbation - Initiate TB isolation. Patient refuses endotracheal intubation - DuoNeb every 6 hours scheduled and when necessary - IV Solu Medrol 125 mg 1 and 60 every 6 hours - Vancomycin and Zosyn will be continued, and Levaquin - Sputum culture AFB - Pulmonology and infectious diseases consult - CT findings along with history of hemoptysis and approximately 100 pound weight loss very concerning for lung cancer CV: NSTEMI Atrial fibrillation with RVR Lactic acidosis - Normal saline IV fluids 2L and NS at 84 ml per hour - Hold of cardiology consult and 2-D echo due to poor prognosis, repeat troponin - Patient refused aspirin. With a history of gastric ulcer I will not heparinize - Cardizem infusion for atrial fibrillation with RVR GI: - Nothing by mouth, IV Protonix : - Monitor renal function closely. Place Singh catheter if patient agreeable ID: Septic shock Probable cavitating pneumonia/lung abscess - IV vancomycin, Zosyn and Levaquin - Check sputum culture blood culture and sputum for AFB HEME: - Monitor CBC, CMP, coags - High likelihood of cavitating lung cancer. - Pursue bronchoscopy if he stabilizes clinically ENDO: - Electrolyte replacement per protocol PROPH: - Bilateral lower extremity SCDs. Lovenox/Protonix LINES: - Utilize peripheral IVs, central line if needed Overall impression: Continued deterioration manifesting as hypotension and strained respiratory effort. Following patient's wishes for no further aggressive treatment. He specifically requested no intubation or BiPAP support. He knows he is going to of this illness. Ministerio Larose MD May 28, 2017 05:09
--- NOTE | 2017-05-28 05:33 | RADRPT ---
EXAM DATE/TIME: 05/28/2017 04:02 [facility] COMPARISON: CHEST SINGLE AP, May 27, 2017, 13:52. INDICATIONS : Shortness of breath, possible pulmonary disease. MEDICAL HISTORY : Ulcers. SURGICAL HISTORY : None. ENCOUNTER: Subsequent ACUITY: 2 days PAIN SCORE: Non-responsive. LOCATION: Bilateral chest FINDINGS: A single view of the chest demonstrates almost complete opacification right hemithorax with cavitary portion in the right midlung. There is interval development of left lung consolidation. Osseous stru ctures are intact. CONCLUSION: 1. Interval development of consolidation throughout the left lung. 2. Almost complete opacification right hemithorax. Sean Augustine MD on May 28, 2017 at 5:31 Board Certified Radiologist. This report was verified electronically.
--- NOTE | 2017-05-28 06:26 | HHI.DS ---
Summary Note Date of : May 28, 2017 Time Of : 04:15 Admission Date May 27, 2017 at 17:03 Admitting Diagnosis pnemonia, sepsis, elevated troponin, A-fib with RVR Diagnosis at Time of : (1) Acute hypoxemic respiratory failure ICD Code: J96.01 Diagnosis: Principal (2) Septic shock ICD Code: A41.9 Diagnosis: Principal (3) NSTEMI (non-ST elevated myocardial infarction) ICD Code: I21.4 Diagnosis: Principal (4) Probable lung abscess Diagnosis: Principal (5) Cavitating right sided lung lesion Diagnosis: Principal (6) Severe leukocytosis Diagnosis: Principal (7) Lactic acidemia ICD Code: E87.2 Diagnosis: Principal (8) Atrial fibrillation with RVR ICD Code: I48.91 Diagnosis: Principal (9) History of gastric ulcer ICD Code: Z87.19 Diagnosis: Secondary Brief History Patient is a 61-year-old male with past medical history significant for [id number] history of smoking, previous history of alcohol dependence, weight loss of approximately 100 pound since December of this year, hemoptysis for last several months who presented to the emergency department with progressive shortness of breath. His father had gastric ca, one sister had breast ca and another sister colon ca. He arrived quite tachypneic and diaphoretic to the ED. Patient was placed on nasal cannula oxygen, a chest x- ray showed complete whiteout of the right lung field. Patient was sent for emergent CT pulmonary angiogram which showed no pulmonary embolism but extensive and complete consolidation of the right lung with air bronchograms in the right upper lung and large cavitary process. D/D cavitated lung cancer versus empyema/lung abscess. Also severe tapering of the right main pulmonary artery, and prominent adenopathy in the right paratracheal and superior mediastinum, supradiaphragmatic region. He should also was initially in atrial fibrillation with RVR, for which he received Cardizem bolus and converted to sinus rhythm. Multiple abnormal lab data: CBC shows leukocytosis of 38.3 with 31% bands, hemoglobin 10.1. CMP shows hyponatremia 131. His Troponin is was 4.75. Lactic acid was highly elevated at 7.2. Patient was given vancomycin 1 gm IV and Zosyn 4.5 gm IV in ED. Normal saline 1 L IV bolus x2 is given. Patient requested to be a DNR. I evaluated the patient in the emergency department. His respiratory status has deteriorated he is more hypoxic and very tachypneic and had been placed on BiPAP. I discussed with him extensively about the CODE STATUS and the reason for choosing DNR. He is very adamant that he does not run ventilatory support or cardiac resuscitation. His sister agrees that they have decided this prior to hospitalization. Patient appears to be worried that he has lung cancer with a weight loss of 100 lbs in 5 months and hemoptysis. Again patient is extremely tachypneic in impending respiratory failure but refuses ventilator and now refusing BiPAP. I have placed him on Ativan and morphine for anxiety and resp distress. I have placed him on scheduled and when necessary breathing treatments. Will continue vancomycin and Zosyn and add Levaquin. Also started him on Solu-Medrol 125 mg 1 and 60 every 6. CBC/BMP: 05/27/17 1345 05/27/17 1345 Significant Findings Laboratory Tests Test 05/27/17 05/27/17 05/27/17 05/27/17 13:45 16:10 17:00 21:00 White Blood Count 38.3 TH/MM3 (4.0-11.0) Red Blood Count 4.38 MIL/MM3 (4.50-5.90) Hemoglobin 10.1 GM/DL (13.0-17.0) Hematocrit 33.8 % (39.0-51.0) Mean Corpuscular Volume 77.2 FL (80.0-100.0) Mean Corpuscular Hemoglobin 23.0 PG (27.0-34.0) Mean Corpuscular Hemoglobin 29.7 % Concent (32.0-36.0) Red Cell Distribution Width 18.9 % (11.6-17.2) Platelet Count 544 TH/MM3 (150-450) Mean Platelet Volume 6.6 FL (7.0-11.0) Neutrophils (%) (Auto) 94.4 % (16.0-70.0) Lymphocytes (%) (Auto) 1.8 % (9.0-44.0) Neutrophils # (Auto) 36.1 TH/MM3 (1.8-7.7) Lymphocytes # (Auto) 0.7 TH/MM3 (1.0-4.8) Monocytes # (Auto) 1.4 TH/MM3 (0-0.9) Band Neutrophils % 31 % (0-6) Neutrophils # (Manual) 37.2 TH/MM3 (1.8-7.7) Toxic Granulation 1+ (NORMAL) Toxic Vacuolation PRESENT (NONE SEEN) Dohle Bodies PRESENT (NONE SEEN) Platelet Estimate HIGH (NORMAL) Prothrombin Time 13.7 SEC (9.8-11.6) Activated Partial 30.4 SEC Thromboplast Time (24.3-30.1) Sodium Level 131 MEQ/L (136-145) Chloride Level 90 MEQ/L (98-107) Estimat Glomerular Filtration 62 ML/MIN (>89) Rate Random Glucose 159 MG/DL (74-106) Lactic Acid Level 7.2 mmol/L 6.7 mmol/L 9.8 mmol/L (0.4-2.0) (0.4-2.0) (0.4-2.0) Aspartate Amino Transf 61 U/L (15-37) (AST/SGOT) Alkaline Phosphatase 239 U/L (45-117) Creatine Kinase MB 13.6 NG/ML (0.5-3.6) Troponin I 4.75 NG/ML 4.14 NG/ML (0.02-0.05) (0.02-0.05) B-Type Natriuretic Peptide 344 PG/ML (0-100) Albumin 2.1 GM/DL (3.4-5.0) Test 05/27/17 23:11 Troponin I 4.17 NG/ML (0.02-0.05) Imaging Chest x-ray and CT scan personally reviewed Hospital Course Patient is a 61-year-old male with [id number] history of smoking, previous history of alcohol dependence, weight loss of approximately 100 pound since December of this year, hemoptysis for last several months who presented to the emergency department with progressive shortness of breath. His father had gastric ca, one sister had breast ca and another sister colon ca. He arrived quite tachypneic and diaphoretic to the ED. Patient was placed on nasal cannula oxygen, a chest x-ray showed complete whiteout of the right lung field. Patient was sent for emergent CT pulmonary angiogram which showed no pulmonary embolism but extensive and complete consolidation of the right lung with air bronchograms in the right upper lung and large cavitary process. D/D cavitated lung cancer versus empyema/lung abscess. Also severe tapering of the right main pulmonary artery, and prominent adenopathy in the right paratracheal and superior mediastinum, supradiaphragmatic region. He should also was initially in atrial fibrillation with RVR, for which he received Cardizem bolus and converted to sinus rhythm. Multiple abnormal lab data: CBC shows leukocytosis of 38.3 with 31% bands, hemoglobin 10.1. CMP shows hyponatremia 131. His Troponin is was 4.75. Lactic acid was highly elevated at 7.2. Patient was given vancomycin 1 gm IV and Zosyn 4.5 gm IV in ED. Normal saline 1 L IV bolus x2 is given. Patient requested to be a DNR. I evaluated the patient in the emergency department. His respiratory status has deteriorated he is more hypoxic and very tachypneic and had been placed on BiPAP. I discussed with him extensively about the CODE STATUS and the reason for choosing DNR. He is very adamant that he does not run ventilatory support or cardiac resuscitation. His sister agrees that they have decided this prior to hospitalization. Patient appears to be worried that he has lung cancer with a weight loss of 100 lbs in 5 months and hemoptysis. Again patient is extremely tachypneic in impending respiratory failure but refuses ventilator and now refusing BiPAP. I have placed him on Ativan and morphine for anxiety and resp distress. I have placed him on scheduled and when necessary breathing treatments. Will continue vancomycin and Zosyn and add Levaquin. Also started him on Solu-Medrol 125 mg 1 and 60 every 6. 05/28: Continued deterioration manifesting as hypotension and strained respiratory effort. Following patient's wishes for no further aggressive treatment. He again specifically requested no intubation or BiPAP support. He knows he is going to of this illness.He May 28, 2017 at 0415. Ruben Pierre MD May 28, 2017 06:26
--- NOTE | 2017-05-29 06:18 | MB ---
cc: DEBIDESSHAREE DATE OF CONSULTATION 05/27/2017 REASON FOR CONSULTATION Cavitary lung lesion. HISTORY OF PRESENT ILLNESS This is a 61-year-old white male who has been brought to the emergency room with complaints of shortness of breath, pneumonia and sepsis. The patient was in atrial fibrillation with rapid ventricular response. He was seen in the ER and a CT scan of the chest was obtained and the patient was started on IV Zosyn 4.5 grams, normal saline boluses were given for sepsis and his The patient's troponin was elevated as well as a lactic acid. He has been on nasal cannula and apparently the patient requested to be a DNR and has been started on nebulized bronchodilators as well. A CT scan of the chest showed no evidence of pulmonary emboli but extensive consolidation in the right lung with a cavitary process in the right midlung and upper lung and cavitary lesions with possible lung mass versus lung abscess and empyema. The patient has been hypotensive and has received Cardizem boluses and now on a drip and he was tachypneic and diaphoretic in the ER. PAST HISTORY 1. Gastric ulcers. 2. History of COPD. HABITS The patient smoked half to one-pack per day for 40 years till December of this year. Alcohol use in the past but not recently. FAMILY HISTORY Significant for gastric cancer and one sister with breast cancer as well as another sister with colon cancer. ALLERGIES No known drug allergies. SYSTEMS REVIEW The patient is unable to provide any details. He is tachypneic and diaphoretic, lethargic, cold and clammy. PHYSICAL EXAMINATION GENERAL: This is a middle aged, emaciated-looking white male who is pale, dyspneic and has peripheral cyanosis with diminished pulses, cool extremities. VITAL SIGNS: Blood pressure 90/50, heart rate was 128, respirations 36, temperature 96.5. HEENT: Head normocephalic. Pupils are reactive. Sclerae are injected. Throat is dry. Nasal mucosae edematous. NECK: Supple without venous distension. Trachea midline. CHEST: Decreased breath sounds at the bases and wheezes are heard bilaterally. There are crackles extensively over the right chest. HEART: The heart sounds are regular. S1 and S2. No murmur. ABDOMEN: Soft, protuberant. No mass or organomegaly. EXTREMITIES: Mild edema. Decreased pulses and peripheral cyanosis and cool extremities. RECTAL: Exam is deferred. IMPRESSION 1. Septic shock. 2. Extensive right lung pneumonia with cavitation. 3. Probable lung mass with cavitation. 4. COPD with emphysema. 5. History of gastric ulcer. PLAN 1. The patient has been started on a Ventimask at 40%, nebulized Atrovent solution q.i.d. p.r.n. 2. Antibiotic therapy has been instituted which will continue including IV Zosyn, vancomycin and sputum will be sent for Gram's stain and culture. 3. Blood cultures, urine cultures are pending. 4. A follow-up chest x-ray has been ordered. 5. BiPap has been ordered in case he should desaturate further and the patient has requested DNR/DNI. 6. We will review the repeat chest x-ray and if he is able clinically will biopsy. We will follow the case with you, Dr. Pierre. Thank you for this consultation. MD LANE Terrazas/[place] /12:14 AM /6:10 AM
== END 2017-05-28 04:15 | disposition expired | DRG 871 ==
LOC: NEPC 13:20 → NEDA 17:03 → HIME 18:54
PROVIDERS: ADMIT Internal Medicine; ATTEND Internal Medicine
PROC: 5A09357 Assistance with Respiratory Ventilation, Less than 24 Consecutive Hours, Continuous Positive Airway Pressure (ICD-10-PCS; principal; 2017-05-27)
DX: A41.9 Sepsis, unspecified organism (principal); J96.01 Acute respiratory failure with hypoxia; I21.4 Non-ST elevation (NSTEMI) myocardial infarction; R65.21 Severe sepsis with septic shock; J85.2 Abscess of lung without pneumonia; J44.0 Chronic obstructive pulmonary disease with (acute) lower respiratory infection; J18.9 Pneumonia, unspecified organism; I48.91 Unspecified atrial fibrillation; E87.2 Acidosis; J44.1 Chronic obstructive pulmonary disease with (acute) exacerbation; Z68.1 Body mass index [BMI] 19.9 or less, adult; E87.1 Hypo-osmolality and hyponatremia; R63.4 Abnormal weight loss; J98.4 Other disorders of lung; Z87.11 Personal history of peptic ulcer disease; Z66 Do not resuscitate; Z80.3 Family history of malignant neoplasm of breast; Z80.0 Family history of malignant neoplasm of digestive organs; Z87.891 Personal history of nicotine dependence
CPT/HCPCS: 71010; 71275; 80053; 82550; 82552; 83605; 83735; 83880; 84484; 85007; 85027; 85610; 85730; 86850; 86900; 86901; 87015; 87040; 87641; 93005; 94640; 94664; 96361; 96365; 96375; C9113; J1650; J1956; J2060; J2543; J2930; J3010; J3370; J7030; J7050; Q9967